=== PATIENT | male | born 1985 | race Caucasian/White ===

== ENCOUNTER → 2017-04-30 | Outpatient (CLI) | payer OTHER ==
[~2017-04-30] MED LIST: PANTOPRAZOLE SO40 MG PO; ZANTAC PO
--- NOTE | ~2017-04-30 | CT4 ---
[facility] A Service of [facility] RADIOLOGY TEXT RESULTS PATIENT: JACQUELIN EARL LOCATION: [facility] : 89 UNIT #: [id number] AGE: [address]: Tracee Natarajan APRN SEX: M ORDER DR: [id number] [place], [place] [address] [id number] O MR#: [id number] Acc #: [id number] NAME: JACQUELIN EARL : 1985 SEX: M STUDY DATE/TIME: 04/30/2017 9:29 UNIT: [facility] ROOM: STUDY DESCRIPTION: CT Abd and Pelv Wo Cont Attending Physician: Tracee Natarajan A.P.R.N. Referring Physician: Tracee Natarajan A.P.R.N. Ordering Physician: Tracee Natarajan A.P.R.N. Primary Care Physician: Tracee Natarajan A.P.R.N. MEDICAL IMAGING REPORT This report is preliminary unless electronic signature is present EXAM CT of the abdomen and pelvis without contrast. INDICATION Abdominal pain, cramping, diarrhea and bilateral flank pain and right lower quadrant pain for 3-[address] of the abdomen and pelvis was performed without contrast. Coronal and sagittal reformatted images were obtained. This CT exam was performed with one or more of the following radiation dose reduction techniques: automatic exposure control, adjustment of mA and/or kV according to patient size, and iterative reconstruction. COMPARISON Comparison with 02/12/2016. FINDINGS Lung bases are clear. Liver, gallbladder, and spleen are unremarkable. Tiny bilateral nonobstructing kidney stones. Adrenal glands unremarkable. Pancreas unremarkable. PELVIS: Large stool burden in the colon may indicate constipation. The appendix is normal. There is no free fluid. The bone windows are unremarkable. IMPRESSION 1. Tiny bilateral nonobstructing kidney stones. 2. Large stool burden within the colon may indicate constipation. [facility] A Service of [facility] RADIOLOGY TEXT RESULTS PATIENT: JACQUELIN ERAL LOCATION: [facility] : 89 UNIT #: [id number] AGE: [address]: Tracee Natarajan APRN SEX: M ORDER DR: Dictated by... Anson Joyner M.D. THIS IS AN ELECTRONICALLY VERIFIED REPORT Anson Joyner M.D. at 05/05/2017 1:32 PM ESTEBAN/ana cristina TD: 05/01/2017 02:17 JOB #: [id number] MEDICAL IMAGING REPORT Page 1 of 1 COPY
== END | disposition home or self-care (01) ==
LOC: CCAT 09:08
DX: R10.84 Generalized abdominal pain (principal)
CPT/HCPCS: 74176